=== PATIENT | female | born 1970 | race Caucasian/White ===

== ENCOUNTER → 2017-03-08 | Outpatient (CLI) | payer OTHER ==
[~2017-03-08] MED LIST: ZYRTEC10 M3 PO; ZYRTEC10 MG PO
== END ==
LOC: HEART 5 08:20
DX: R07.9 Chest pain, unspecified (principal)
CPT/HCPCS: 78452; A9502

== ENCOUNTER 2021-01-03 14:55 | Emergency (ER) | payer OTHER ==
[~2021-01-03 14:55] MED LIST changes: +AMBIEN10 MG PO; +ASPIRIN EC81 MG PO; +ATROVENT HFA12.9 GM INH; +BACLOFEN10 MG PO; +BREO ELLIPTA 21 EACH INH; +CITALOPRAM HBR20 MG PO; +COREG 25MG TAB25 MG PO; +COZAAR100 MG PO; +CRESTOR40 MG PO; +CYMBALTA60 MG PO; +DITROPAN XL10 MG PO; +FENOFIBRATE160 MG PO; +FEROSUL325 MG PO; +FLUTICASONE-SA1 EAC5; +GLUCOPHAGE1000 MG PO; +HUMULIN R100 UNIT/1 SQ; +HYDROXYZINE HCL25 MG PO; +IBUPROFEN800 MG PO; +INCRUSE ELLI62.5 MCG INH; +K-TAB ER10 MEQ PO; +LASIX80 MG PO; +LITHIUM CARBON450 MG PO; +LYRICA100 MG PO; +LYRICA200 MG PO; +MECLIZINE HCL25 MG PO; +MINIPRES CAP 2 M2 MG PO; +SINGULAIR10 MG PO; +THORAZINE 25 MG25 MG PO; +TRAZODONE HCL150 MG PO; +VASCEPA1 GM PO; +VENTOLIN HFA 66.7 GM INH; +VITAMIN D325 MC6 PO; +ZESTRIL2.5 MG PO
[2021-01-03 16:46] LABS: HEMOGLOBIN 14.8 gm/dl (12.3-15.3); RED BLOOD COUNT 4.72 M/UL (4.00-5.10); WHITE BLOOD COUNT 14.2 K/UL (4.5-11.0)
[2021-01-03 17:11] LABS: BUN/CREATININE RATIO 21 (0-10)
[2021-01-03] MEDS ORDERED: VENTOLIN HFA 66.7 GM INH (21:16)
[2021-01-03] MEDS ORDERED: PREDNISONE 50 M50 MG PO (21:16)
== END 2021-01-03 21:25 | disposition home or self-care (01) ==
LOC: ER1 14:55
PROVIDERS: Physician Assistant Medical
DX: I10 Essential (primary) hypertension (principal); J18.9 Pneumonia, unspecified organism; J44.9 Chronic obstructive pulmonary disease, unspecified; E11.9 Type 2 diabetes mellitus without complications; F17.210 Nicotine dependence, cigarettes, uncomplicated; Z20.822 Contact with and (suspected) exposure to COVID-19; Z79.4 Long term (current) use of insulin; Z79.82 Long term (current) use of aspirin; Z88.5 Allergy status to narcotic agent; Z88.1 Allergy status to other antibiotic agents
CPT/HCPCS: 71045; 80053; 81001; 82550; 82553; 82962; 83690; 83874; 84484; 85025; 85610; 93005; 99285; U0002

== ENCOUNTER 2021-04-01 15:12 | Emergency (ER) | payer OTHER ==
[~2021-04-01 15:12] MED LIST changes: +PREDNISONE 50 M50 MG PO
[2021-04-01 16:27] LABS: HEMOGLOBIN 14.6 gm/dl (12.3-15.3); RED BLOOD COUNT 4.49 M/UL (4.00-5.10); WHITE BLOOD COUNT 11.7 K/UL (4.5-11.0)
[2021-04-01 17:31] LABS: BUN/CREATININE RATIO 12 (0-10)
[2021-04-01] MEDS ORDERED: DOXYCYCLINE HY100 MG PO (22:59)
[2021-04-01] MEDS ORDERED: IPRAT-ALBUT 0.5-3 ML INH (22:59)
[2021-04-01] MEDS ORDERED: PREDNISONE 20 M20 MG PO (22:59)
== END 2021-04-01 23:16 | disposition home or self-care (01) ==
LOC: ER1 15:12
PROVIDERS: Physician Assistant Medical
DX: J44.1 Chronic obstructive pulmonary disease with (acute) exacerbation (principal); I10 Essential (primary) hypertension; E11.65 Type 2 diabetes mellitus with hyperglycemia; R30.0 Dysuria; R74.02 Elevation of levels of lactic acid dehydrogenase [LDH]; Z20.822 Contact with and (suspected) exposure to COVID-19; F17.210 Nicotine dependence, cigarettes, uncomplicated; G47.30 Sleep apnea, unspecified; Z79.4 Long term (current) use of insulin; Z90.49 Acquired absence of other specified parts of digestive tract; Z90.710 Acquired absence of both cervix and uterus; Z88.5 Allergy status to narcotic agent; Z88.8 Allergy status to other drugs, medicaments and biological substances
CPT/HCPCS: 0240U; 36600; 71045; 80053; 81001; 82550; 82553; 82803; 83605; 83874; 83880; 84484; 85025; 93005; 94640; 94664; 99285; J7030

== ENCOUNTER → 2021-04-02 | Outpatient (CLI) | payer OTHER ==
[~2021-04-02] MED LIST changes: +DOXYCYCLINE HY100 MG PO; +IPRAT-ALBUT 0.5-3 ML INH; +PREDNISONE 20 M20 MG PO
== END ==
LOC: KOH-I 12:42
DX: R22.1 Localized swelling, mass and lump, neck (principal); E04.9 Nontoxic goiter, unspecified
CPT/HCPCS: 76536

== ENCOUNTER → 2021-04-24 | Outpatient (CLI) | payer OTHER | LOC: CT 04-21 11:00 | DX: R22.1 Localized swelling, mass and lump, neck (principal) | CPT/HCPCS: 70492; Q9967 ==

== ENCOUNTER → 2021-05-09 | Outpatient (CLI) | payer OTHER | LOC: HEART 5 11:32 | DX: J42 Unspecified chronic bronchitis (principal); J30.9 Allergic rhinitis, unspecified; R07.89 Other chest pain; G56.00 Carpal tunnel syndrome, unspecified upper limb; E11.65 Type 2 diabetes mellitus with hyperglycemia; R93.89 Abnormal findings on diagnostic imaging of other specified body structures; S14.3XXA Injury of brachial plexus, initial encounter; Z79.899 Other long term (current) drug therapy | CPT/HCPCS: 94060; 94729 ==

== ENCOUNTER 2021-10-06 12:23 | Emergency (ER) | payer OTHER ==
[2021-10-06 15:28] LABS: HEMOGLOBIN 13.9 gm/dl (12.3-15.3); RED BLOOD COUNT 4.09 M/UL (4.00-5.10); WHITE BLOOD COUNT 16.5 K/UL (4.5-11.0)
[2021-10-06 16:29] LABS: BUN/CREATININE RATIO 23 (0-10)
== END 2021-10-06 21:30 | disposition home or self-care (01) ==
LOC: ER1 12:23
PROVIDERS: Emergency Medicine
DX: R13.10 Dysphagia, unspecified (principal); R49.0 Dysphonia; E11.65 Type 2 diabetes mellitus with hyperglycemia; E83.51 Hypocalcemia; F17.210 Nicotine dependence, cigarettes, uncomplicated; E78.00 Pure hypercholesterolemia, unspecified; Z20.822 Contact with and (suspected) exposure to COVID-19; J44.9 Chronic obstructive pulmonary disease, unspecified; I10 Essential (primary) hypertension
CPT/HCPCS: 70491; 71045; 71260; 80048; 80053; 80061; 82962; 84439; 84443; 85007; 85027; 93005; 99285; J0610; J1100; Q9967; U0002

== ENCOUNTER → 2022-01-14 | Outpatient (CLI) | payer OTHER | LOC: EMI 01-07 11:00 | DX: R42 Dizziness and giddiness (principal) | CPT/HCPCS: 70553; A9577 ==

== ENCOUNTER → 2022-04-21 | Outpatient (CLI) | payer OTHER | LOC: MAMO 02-03 14:30 → EXRD 02-04 10:00 → MAMO 02-04 11:00 → EXRD 02-16 11:30 → MAMO 02-24 14:30 → EXRD 02-26 13:30 → MAMO 13:30 | DX: N64.52 Nipple discharge (principal) | CPT/HCPCS: 77066; G0279 ==